=== PATIENT | male | born 1950 | race Caucasian/White ===

== ENCOUNTER 2017-09-14 06:23 | Day surgery (SDC) | payer MEDICARE ==
[~2017-09-14] VITALS: Ht 182.9 cm; Wt 95.0 kg
[2017-09-14] MEDS ORDERED: IOHEXOL 350 MG/ML 100 ML BTL (for Cath Lab) OTHER ONE (06:24)
[2017-09-14 07:01] VITALS: BP 128/97; PULSE 72; RESP 18; TEMP 97.8; O2SAT 95
[2017-09-14] MEDS ORDERED: LOSA100T2 PO (07:03)
[2017-09-14] MEDS ORDERED: METF1000 PO (07:03)
[2017-09-14] MEDS ORDERED: OMEP20TA93 PO (07:03)
[2017-09-14] MEDS ORDERED: FLUT50SP EACH NARE (07:03)
[2017-09-14] MEDS ORDERED: ATOR80TA45 PO (07:03)
[2017-09-14] MEDS ORDERED: TRAM-388 PO (07:03)
[2017-09-14] MEDS ORDERED: GLIM4TAB PO (07:03)
[2017-09-14] MEDS ORDERED: ALLO100T PO (07:03)
[2017-09-14 07:15] LABS: BASOPHIL # 0.1 TH/MM3 (0-0.2); BASOPHIL % 1.4 % (0.0-2.0); EOSINOPHIL # 0.3 TH/MM3 (0-0.4); EOSINOPHIL % 4.2 % (0.0-4.0); HEMATOCRIT 35.2 % (39.0-51.0); HEMO FLAGS DIFF FINAL; LYMPH % 26.1 % (9.0-44.0); LYMPHOCYTE # 1.7 TH/MM3 (1.0-4.8); MEAN CELL VOLUME 90.5 FL (80.0-100.0); MEAN CORPUSCULAR HEMOGLOBIN 31.4 PG (27.0-34.0); MEAN CORPUSCULAR HGB CONC 34.6 % (32.0-36.0); MONO % 8.2 % (0.0-8.0); NEUT % 60.1 % (16.0-70.0); PLATELET COUNT 187 TH/MM3 (150-450); RED BLOOD COUNT 3.89 MIL/MM3 (4.50-5.90); RED CELL DISTRIBUTION WIDTH 13.2 % (11.6-17.2); WHITE BLOOD COUNT 6.6 TH/MM3 (4.0-11.0)
[2017-09-14] MEDS ORDERED: ASPIRIN 325 MG TAB PO SCH (07:15)
[2017-09-14] MEDS ORDERED: NS 1000P @30 MLS/HR (KVO) IV SCH (07:15)
[2017-09-14] MEDS ORDERED: ISOS30TA3 PO (07:19)
[2017-09-14 07:27] LABS: APTT (PATIENT) 23.8 SEC (24.3-30.1); PROTHROMBIN TIME - PATIENT 10.5 SEC (9.8-11.6)
[2017-09-14 07:28] LABS: BICARBONATE 26.7 MEQ/L (21.0-32.0); POTASSIUM 3.9 MEQ/L (3.5-5.1)
[2017-09-14] MEDS ORDERED: HEPARIN-NS/PF INJ 500 ML ONE (08:22)
[2017-09-14] MEDS ORDERED: MIDAZOLAM HCL 2 MG/2 ML VIAL ONE (08:22)
[2017-09-14] MEDS ORDERED: SODIUM CHLOR 0.9% 1000 ML INJ 1,000 ML IV SCH (09:16)
--- NOTE | 2017-09-14 09:27 | CATHPROC ---
[employer] HIS Report Study Information Study Number Admission Scheduled Start Study Start [id number] Sep 14 2017 6:23AM 09/14/2017 Sep 14 2017 8:19AM [place] Service Cardiac Catheterization Admit Source Facility Department Other [facility] Physician and Clinical Staff Initial [employer] Radiator Mechanic Chelsy Martinez,RN Recorder Home Mcbride,ANGÉLICA Recorder Geo Acharya,RT(R) Scrub Roro Glass,RT(R) Procedures Performed Procedure Location (Site) Vessel Name Angiogram LV LV Ventricle Coronary Angiograms LCA Left Coronary Coronary Angiograms RCA Right Coronary L Heart Cath Equipment Time Assessment Coordinator Description Size Mfg Part Number Used/Scraped TRANSDUCER, TRUWSARIAH [id number] 08:31 VELOZ DE LUNA * Used W/STOCKCOCK *[id number] *[id number] *[id number] PIGTAIL ANG. 145 INFINITI 534-652S CATHETER *[id number] 09:01 DAIG/ST. SUSIE MEDICAL ANGIOSEAL, FR6 VIP FR 6 Used *[id number] 08:31 [employer] PACK, CCL CUSTOM * Used *[id number] 08:31 [employer] PACER PEN, SKIN DUAL W/ RULER * Used *[id number] 08:31 Maintenance Assistant MEDICAL SHEATH, FR6.5 PRELUDE 11CM FR 6.5 038ACT Used *[id number] 08:31 Maintenance Assistant MEDICAL WIRE, 3MMJ .035 180CM 180CM Used *[id number] 08:31 NAMIC MANIFOLD, 4 PORT * Used *[id number] 08:31 NYCOMED OMNIPAQUE, 350 MG, 100ML 100ML [id number] Used 08:45 NYCOMED OMNIPAQUE, 350 MG, 50ML 50ML [id number] Used [id number] 08:31 ALANIZ MEDICAL BLANKET,WARM AIR CCL * Used *[id number] Equipment Model, Serial, Lot Number and Expiration Data Description Model Number Serial Number Lot Number Expiration Date ANGIOSEAL, FR6 VIP [id number] 04-25-2018 History: Current Medications Medication Dosage/Unit Route Frequency Last Date/Time Taken Allopurinol Statins (any) Prilosec Glucophage LOPRESSOR History: Allergies Allergy Reaction NKDA History: Risk Factors Family History of Hypertension Dyslipidemia Previous AL Previous Heart Failure Premature CAD Yes Yes No No No Prior Valve Prior PCI Prior CABG Surgery No No No Cerebrovascular Peripheral Artery Chronic Lung On Dialysis Diabetes Diabetes Therapy Disease Disease Disease No No No No Yes Oral History: Symptoms/Diagnosis Selection Items SOB Syncope History: CV Disease Selection Items Known CAD History: Stress Tests Stress or Imaging Studies Performed Yes Standard Exercise Stress Test No Stress Echo No Stress Test SPECT Stress Test SPECT Result Stress Test SPECT Ischemia Risk/Extent Yes Positive Low Stress Test CMR No Cardiac CTA Coronary Calcium Score No No History: Other Disease Selection Items CAD HTN History: Other Current Smoker Method Quit Packs a Day Years Used Pack Years No Cigarettes 25 Years Ago 3 25 75 Labs Hgb (g/dl) Hct (%) WBC (l/cumm) Platelets (thousands) 11.60-17.00 35.00-51.00 4.00-11.00 150.00-450.00 12.2 35.2 6.6 187 Glucose (mg/dl) BUN (mg/dl) Creatinine (mg/dl) BUN:Creatinine (1:x) 74.00-106.00 7.00-18.00 0.50-1.30 10.00-20.00 71 13 0.8 16.3 Na (meq/l) K (meq/l) 136.00-145.00 3.50-5.10 143 3.9 INR (PTT:PT) 0.90-1.10 1 CPK-MB (ng/ML) 0.50-3.60 Not Drawn Medication Medication Total Dose (Bolus/Oral) Medication Total Dosage/Unit 1% XYLOCAINE 20 mL VERSED 2 mg Medications (Bolus/Oral) Medication Time Given Dosage/Unit Administered By Reason VERSED 09/14/2017 8:40:04 AM 1 mg Chelsy Martinez 1 mg VERSED given in lab by Chelsy Martinez, RN in Left Antecubital via Peripheral IV. VERSED 09/14/2017 8:41:18 AM 1 mg Chelsy Martinez 1 mg VERSED given in lab by Chelsy Martinez, RN in Left Antecubital via Peripheral IV. 1% XYLOCAINE 09/14/2017 8:41:44 AM 20 mL Bright Catalan 20 mL 1% XYLOCAINE given in lab by Bright Catalan in Right Groin via Subcutaneous. Medication (Drip) Medication Time Given Dosage/Unit Concentration/Unit Diluent (ml) Soluti on IV Solutions 09/14/2017 8:33:21 AM 0 mL (IV) 500 NaCl .9 IV Solutions given in lab by Chelsy Martinez RN in Left Hand via Peripheral IV. Pump/Drip Flow = 20 ml/hr using NaCl .9. Initial Case Assessment Cardiovascular HR Rhythm NIBP Chest Pain 64 Sinus 141/90 0 Edema Present Skin color Skin None Normal Warm Dry Circulatory - Right Pulses Dorsalis Pedis Femoral 3 3 Scale (0,1,2,3,4,d) Circulatory - Left Pulses Dorsalis Pedis Femoral 3 3 Scale (0,1,2,3,4,d) Neurological State Oriented to time-place- Alert Moves all extremities person Respiration - General Respiration Rate SpO2 (%) O2 (lpm) (B/min) 11 97 0 Final Case Assessment Cardiovascular HR Rhythm NIBP Chest Pain 62 Sinus 149/87 0 Edema Present Skin color Skin None Normal Warm Dry Circulatory - Right Pulses Dorsalis Pedis Femoral 3 3 Scale (0,1,2,3,4,d) Circulatory - Left Pulses Dorsalis Pedis Femoral 3 3 Scale (0,1,2,3,4,d) Neurological State Oriented to time-place- Alert Moves all extremities person Respiration - General Respiration Rate SpO2 (%) O2 (lpm) (B/min) 11 98 0 Chronological Log Time Study Chronological Log 8:02:00 Patient Name, D.O.B, / Armband Verified By R.N. 8:03:00 Patient arrived via Bed. 8:31:25 Patient has been NPO for More than 6Hrs. 8:31:31 Skin Breakdown-none per pt 8:32:04 Patient Warmer Placed on the Table. 8:32:06 Disposable Defibrillator Pads Placed On Patient. 8:32:08 Ivanna Prominences Protected Assessment: Initial Case, HR=64 BPM, Rhythm=Sinus, EAIK=536/90 mmhg, Chest Pain=0, Edema=None, Color=Normal, Skin = Warm, Dry Right Pulses: Alex Ped=3, Femoral=3 8:32:14 Left Pulses: Alex Ped=3, Femoral=3 Neurological: State=Alert, Ox3, BECK Respiration: Resp=11 B/min, SpO2=97 %, O2=0 lpm 8:32:35 Bilateral groins prepped with 2% chlorhexidine, and draped after a 3 minute waiting time. 8:33:04 Immediate Presedation assesment performed by physician. 8:33:13 A # 20 IV was noted in the Hand (left). Grade = 0 IV Solutions given in lab by Chelsy Martinez, ANGÉLICA in Left Hand via Peripheral IV. Pump/Drip Flow = 20 ml/hr using NaCl 8:33:21 .9. 8:33:25 Pressure channel 1 zeroed. 8:33:29 Reference ECG taken Vitals capture started with the following parameters, Patient=Adult, Interval=5 min, Initial Pre pouzo=529 mmHg, 8:38:12 Deflation Rate=5 mmHg, Cuff placed on Left Arm 8:38:56 HR=64 bpm, SZLE=480/90 mmhg, SpO2=97.0 %, Resp=0 B/min, Pain=0, Tonja=10, Rutherford=2 Time Out. Correct patient, correct procedure, correct physician, power injector loaded with cont rast with surgical team 8:39:27 present. Time Out Concurred by MD and individual staff in procedure. 8:39:59 Case Start 8:40:04 1 mg VERSED given in lab by Chelsy Martinez, ANGÉLICA in Left Antecubital via Peripheral IV. 8:41:18 1 mg VERSED given in lab by Chelsy Martinez, ANGÉLICA in Left Antecubital via Peripheral IV. 8:41:44 20 mL 1% XYLOCAINE given in lab by Bright Catalan in Right Groin via Subcutaneous. 8:43:27 Access site was Right Femoral Artery. 8:43:33 A SHEATH, FR6.5 PRELUDE 11CM FR 6.5 was advanced into the Fem Art (right) using the Percutan eous technique. 8:44:22 HR=67 bpm, FRZQ=727/88 mmhg, SpO2=95.0 %, Resp=16 B/min, Pain=0, Tonja=10, Rutherford=2 A PIGTAIL ANG. 145 INFINITI CATHETER FR 6 was advanced over a wire. OMNIPAQUE, 350 MG, 50ML 50ML was used 8:44:53 for injections. Recorded Pressure: LV, HR=59, Condition=Condition 1 8:46:22 (Left Ventricle) LV 150/7/19 8:47:39 The LV was injected at 10 cc/sec for a total of 30. OMNIPAQUE, 350 MG, 50ML 50ML used. Recorded Pressure: LV, Ao, HR=61, Condition=Condition 1 8:48:16 (Left Ventricle) LV 141/6/17, (Aorta) Ao 146/76/104 8:48:28 Catheter was removed 8:48:52 HR=64 bpm, OZWU=703/87 mmhg, SpO2=96.0 %, Resp=16 B/min, Pain=0, Tonja=10, Rutherford=2 Recorded Pressure: Ao, HR=60, Condition=Condition 1 8:49:42 (Aorta) Ao 142/77/103 8:50:08 The LCA was injected and visualized at various angles. OMNIPAQUE, 350 MG, 100ML 100ML used. 8:53:50 Catheter was removed 8:53:55 HR=65 bpm, VOCM=125/84 mmhg, SpO2=97.0 %, Resp=0 B/min, Pain=0, Tonja=10, Rutherford=2 A 3DRC INFINITI CATHETER FR 6 was advanced over a wire. OMNIPAQUE, 350 MG, 100ML 100ML was used for 8:53:56 injections. 8:55:16 The RCA was injected and visualized at various angles. OMNIPAQUE, 350 MG, 100ML 100ML used. 8:56:19 Catheter was removed 8:58:56 HR=64 bpm, FTGP=662/91 mmhg, SpO2=97.0 %, Resp=7 B/min, Pain=0, Tonja=10, Rutherford=2 9:00:52 An injection in the Fem Art (right) was made through the SHEATH, FR6.5 PRELUDE 11CM FR 6.5. 9:02:26 ANGIOSEAL, FR6 VIP FR 6 placement in the Fem Art (right) 9:02:39 Case End 9:02:41 No case complications noted. 9:02:43 Cine recording checked. 9:03:55 HR=63 bpm, OJOF=087/87 mmhg, SpO2=96.0 %, Resp=13 B/min, Pain=0, Tonja=10, Rutherford=2 9:04:38 Bedside Report will be given. 9:04:44 A Left Heart Cath was performed. Assessment: Final Case, HR=62 BPM, Rhythm=Sinus, CSMK=171/87 mmhg, Chest Pain=0, Edema=None, Color=Normal, Skin = Warm, Dry Right Pulses: Alex Ped=3, Femoral=3 9:04:49 Left Pulses: Alex Ped=3, Femoral=3 Neurological: State=Alert, Ox3, BECK Respiration: Resp=11 B/min, SpO2=98 %, O2=0 lpm 9:08:54 HR=64 bpm, GZNQ=195/94 mmhg, SpO2=97.0 %, Resp=17 B/min, Pain=0, Tonja=10, Rutherford=2 9:13:25 Vitals capture stopped. 9:15:06 Sterile dressing applied to site 9:16:47 Patient moved to stretcher End Study - Contrast Media Used In Study Contrast Total Opened (mL) Total Used (mL) Total Wasted (mL) Omnipaque 200 85 115 End Study - Maximum Contrast Load Max Contrast Load (mL) 593.8 End Study - Radiation Exposure Fluoro Time (minutes) 2.8 End Study - Patient Disposition Complications Transferred To Interventional Outcome No Outpatient Bed No attempt made
[2017-09-14] MEDS ORDERED: ONDANSETRON HCL 4 MG/2 ML VIAL IV PUSH PRN (09:30)
[2017-09-14] MEDS ORDERED: AMLO5TAB2 PO (09:54)
[2017-09-14] MEDS ORDERED: ATOR40TA16 PO (09:54)
--- NOTE | 2017-09-14 10:03 | MA ---
cc: KJ SALAZAR M.D. DATE 09/14/2017 PROCEDURE PERFORMED 1. Left heart catheterization. 2. Left ventriculography. 3. Coronary angiography. 4. Right femoral angiography with Angio-Seal placement. DESCRIPTION OF PROCEDURE The patient was brought to the cardiac shop laborer in a fasting state. He received 2 mg of Versed for additional sedation. Using 1% lidocaine for local anesthesia, a 6.5-Djiboutian sheath was inserted in the right femoral artery. Left ventricular pressure was then recorded using a pigtail catheter followed by left ventriculography and then a pullback. Coronary angiography was then completed using a left 4.5 Mitchel for the left coronary artery and a 3DRC for the right coronary artery. I have studied his films and elected medical therapy. Angiography was then obtained of the right femoral artery via the sheath, followed by uncomplicated Angio-Seal placement with good hemostasis. There were no complications. Estimated blood loss was 5 cc. FINDINGS I. HEMODYNAMICS Left ventricular pressure was 141/6 with an end-diastolic pressure of 17. The aortic pressure is 142/77 with a mean of 103. During pullback from left ventricle to the aorta there was no gradient. II. LEFT VENTRICULOGRAPHY Left ventriculography shows a symmetrically chito left ventricle with an estimated ejection fraction of 65%. There is moderate coronary artery calcification seen particularly in the LAD there is no mitral regurgitation seen. III. CORONARY ANGIOGRAPHY The coronary circulation is right-dominant. The left main coronary artery is large with irregularities and a 20% distal stenosis. It bifurcates into the LAD and circumflex vessels. The LAD has diffuse 10% irregularities with proximal disease about 30% at the bifurcation. Diagonal branch has diffuse irregularities with about 30% ostial disease. The circumflex artery has diffuse 10% irregularities proximally and in the obtuse marginal branch. The right coronary artery is large and dominant and has an eccentric proximal 50% stenosis right on a bend. The caliber of the vessel here is large with an estimated diameter of 4 mm. The remainder of the right coronary artery has only 10% irregularities. CONCLUSIONS 1. Slightly elevated left ventricular end-diastolic pressure. 2. Normal left ventricular systolic function. 3. Mild to moderate coronary artery disease, the most severe stenosis being a 50% proximal right coronary artery stenosis. RECOMMENDATIONS Medical management. MD SATINDER Martinez/SSB /9:07 AM /9:53 AM
--- NOTE | 2017-09-14 14:53 | EKG ---
Date Performed: 09/14/2017 Time Performed: 07:09:54 PTAGE: 67 years EKG: Sinus rhythm Normal ECG Compared to prior electrocardiogram, Nonspecific T wave changes no longer present. PREVIOUS TRACING : 06/10/2004 06.16 DOCTOR: John Jimenez Interpretating Date/Time 09/14/2017 14:51:25
== END 2017-09-14 12:40 | disposition home or self-care (01) ==
LOC: HDIC 06:23 → HDOC 06:23
PROVIDERS: ATTEND Internal Medicine Cardiovascular Disease
DX: I25.10 Atherosclerotic heart disease of native coronary artery without angina pectoris (principal); I10 Essential (primary) hypertension
CPT/HCPCS: 80048; 85025; 85610; 85730; 93005; 93458; C1760; C1769; C1893; G0269; J1644; J2250; J7030; Q9967